=== PATIENT | male | born 1990 | race Caucasian/White ===

== ENCOUNTER 2020-06-03 01:30 | Emergency (ER) | payer SELFPAY ==
[~2020-06-03] VITALS: Ht 180.3 cm; Wt 83.9 kg
[2020-06-03 01:54] VITALS: BP 134/86
[2020-06-03] MEDS ORDERED: IBUPROFEN 800 MG TAB PO ONE (07:30)
== END 2020-06-03 07:43 | disposition home or self-care (01) ==
LOC: ER 01:32
DX: S80.12XA Contusion of left lower leg, initial encounter (principal); W01.0XXA Fall on same level from slipping, tripping and stumbling without subsequent striking against object, initial encounter; Y93.89 Activity, other specified; Y92.89 Other specified places as the place of occurrence of the external cause; Y99.8 Other external cause status
CPT/HCPCS: 73590